=== PATIENT | female | born 1990 | race Two or more races ===

== ENCOUNTER 2024-02-13 22:10 | Emergency (ER) | payer SELFPAY ==
[~2024-02-13] VITALS: Ht 165.1 cm; Wt 112.9 kg
[2024-02-14] MEDS ORDERED: LISI-707 PO (00:41)
[2024-02-14 00:51] VITALS: BP 159/93; PULSE 84; RESP 16; TEMP 97.8; O2SAT 97
== END 2024-02-14 00:54 | disposition home or self-care (01) ==
LOC: ER 22:10
DX: I10 Essential (primary) hypertension (principal)
CPT/HCPCS: 93005